=== PATIENT | male | born 1980 | race Hispanic/Latino ===

== ENCOUNTER 2017-07-03 23:25 | Emergency (ER) | payer SELFPAY ==
[2017-07-04 00:15] LABS: MEAN CORPUSCULAR HEMOGLOBIN 27.6 pg (27.0-33.0); RED CELL DISTRIBUTION WIDTH 12.8 % (11.0-15.5)
[2017-07-04 00:28] LABS: CREATININE 1.6 mg/dL (0.5-1.5); POTASSIUM 3.6 mmol/L (3.5-5.1)
[2017-07-04 00:32] LABS: ALBUMIN 4.2 g/dL (3.5-5.0); BASOPHILS % (AUTO) 0.5 % (0.0-5.0); BILIRUBIN,TOTAL 0.3 mg/dL (0.2-1.0); EOSINOPHILS % (AUTO) 0.6 % (0.0-8.0); HEMATOCRIT 43.1 % (42-54); LYMPHOCYTES % (AUTO) 14.2 % (21.0-51.0); MEAN CORPUSCULAR HGB CONC 33.4 g/dL (32.0-36.0); MEAN CORPUSCULAR VOLUME 82.5 fL (79-99); MONOCYTES % (AUTO) 6.4 % (3.0-13.0); NEUTROPHILS % (AUTO) 78.3 % (40.0-77.0); PLATELET COUNT (AUTO) 229 K/uL (130-400); RED BLOOD CELL COUNT(AUTO) 5.23 MIL/uL (4.50-6.20); TOTAL PROTEIN, SERUM 8.1 g/dL (6.0-8.3); WHITE BLOOD COUNT (AUTO) 12.3 K/uL (4.8-10.8)
[2017-07-04] MEDS ORDERED: KETOROLAC TROMETHAMINE 30MG/ML ONE (01:04)
[2017-07-04] MEDS ORDERED: TAMSULOSIN HCL 0.4 MG CAP.ER.24H ONE (01:23)
== END 2017-07-04 02:11 | disposition home or self-care (01) ==
LOC: EDH 23:25
DX: N20.2 Calculus of kidney with calculus of ureter (principal); N28.9 Disorder of kidney and ureter, unspecified
CPT/HCPCS: 36415; 74018; 74176; 80053; 82150; 83690; 85025; 96361; 96374; 99285; J1885

== ENCOUNTER 2023-09-24 06:12 | Emergency (ER) | payer OTHER, SELFPAY ==
[~2023-09-24] VITALS: Ht 175.3 cm; Wt 102.1 kg
[2023-09-24 06:31] LABS: BASOPHILS # (AUTO) 0.07 K/uL (0.00-0.20); BASOPHILS % (AUTO) 0.9 % (0.0-5.0); EOSINOPHILS # (AUTO) 0.12 K/uL (0.00-0.70); EOSINOPHILS % (AUTO) 1.5 % (0.0-8.0); HEMATOCRIT 45.3 % (42-54); IMMATURE GRANULOCYTE ABSOLUTE 0.12 K/uL (0-1); LYMPHOCYTES # (AUTO) 2.9 K/uL (1.0-4.8); LYMPHOCYTES % (AUTO) 35.5 % (21.0-51.0); MEAN CORPUSCULAR HEMOGLOBIN 27.3 pg (27.0-33.0); MEAN CORPUSCULAR VOLUME 80.3 fL (79-99); MONOCYTES # (AUTO) 0.7 K/uL (0.1-1.0); MONOCYTES % (AUTO) 8.1 % (3.0-13.0); NEUTROPHILS # (AUTO) 4.2 K/uL (1.8-7.7); NEUTROPHILS % (AUTO) 52.5 % (40.0-77.0); PLATELET COUNT (AUTO) 272 K/uL (130-400); RED BLOOD CELL COUNT(AUTO) 5.64 MIL/uL (4.50-6.20); RED CELL DISTRIBUTION WIDTH 12.5 % (11.0-15.5); WHITE BLOOD COUNT (AUTO) 8.1 K/uL (4.8-10.8)
[2023-09-24 06:32] LABS: APPEARANCE,URINE CLEAR (CLEAR); BILIRUBIN,URINE NEGATIVE (NEGATIVE); COLOR,URINE LIGHT-YELLOW (YELLOW); GLUCOSE, URINE (UA) NEGATIVE (NEGATIVE); KETONES,URINE NEGATIVE (NEGATIVE); LEUKOCYTE ESTERASE ,URINE NEGATIVE Leu/uL (NEGATIVE); NITRATE,URINE NEGATIVE (NEGATIVE); PROTEIN,URINE 10 mg/dL (NEGATIVE); UROBILINOGEN,URINE 0.2 mg/dL (0.2-1.0)
[2023-09-24 06:33] LABS: ADD UA MICROSCOPIC YES
[2023-09-24 06:36] LABS: SQUAMOUS EPITHELIAL CELL,UR RARE /HPF (0-2); WBC,URINE 0-1 /HPF (0-1)
[2023-09-24] MEDS: LACTATED RINGERS IV ONE (06:40)
[2023-09-24] MEDS: MORPHINE 4 MG SYG IM ONE (06:41)
[2023-09-24 07:05] LABS: ALBUMIN 3.9 g/dL (3.5-5.0); BILIRUBIN,TOTAL 0.2 mg/dL (0.2-1.0); CREATININE 1.4 mg/dL (0.5-1.3); POTASSIUM 4.1 mmol/L (3.5-5.1); TOTAL PROTEIN, SERUM 7.8 g/dL (6.0-8.3)
[2023-09-24] MEDS: KETOROLAC 15MG/ML VIAL (15MG/ML) IV ONE ×2 (07:21→09:07)
[2023-09-24] MEDS ORDERED: KETO10TA2 PO (08:48)
[2023-09-24] MEDS ORDERED: TAMS-1 PO (08:48)
[2023-09-24 09:00] VITALS: BP 148/93; PULSE 76; RESP 17; O2SAT 96
[2023-09-24] MEDS: TAMSULOSIN HCL 0.4 MG CAP.ER.24H PO ONE (09:07)
== END 2023-09-24 09:28 | disposition home or self-care (01) ==
LOC: EDH 06:12
DX: N20.1 Calculus of ureter (principal); Z79.899 Other long term (current) drug therapy
CPT/HCPCS: 99285; 74176; 96374; 96361; 80053; 83690; 85025; 81001; 36415; 96376; 96372; J7120; J2270; J1885 ×2